=== PATIENT | female | born 1960 | race Caucasian/White ===

== ENCOUNTER 2018-07-19 15:21 | Outpatient (RCR) | payer SELFPAY ==
[~2018-07-19] VITALS: Ht 165.1 cm; Wt 83.9 kg
[~2018-07-19 15:21] MED LIST: EST1T TD; IBU800 PO; IBUP-1618 PO; PER PO
--- NOTE | 2018-07-20 17:18 | Medical Nutrition Therapy ---
Nutrition Anthropometrics Height (Inches): 65 Weight (Pounds): 185 (stted) Justin Nutrition Score: Justin Nutrition Risk Score: Dietary Referral Nutrition Risk Factors: Nutrition Risk Comment: Nutrition/Food History Breakfast: llatte Lunch: PBG, salad or nothing Dinner: meat, potatoe Snacks: crackers and PB Nutritional Education Nutrition Education Topic: Diabetic Nutrition Learning Barriers: Emotional (pt states has high stress level) Learning Readiness: Interested (in information on diet), Not Ready (to set goals or attend classes) Teaching Methods: Discussion, Handout Response to Teaching: Verbalize understanding Teaching Recipient: Patient Nutrition Counseling: Reviewed pt self assessment and diabetes distress. Pt is new to diabetes and states her greates concern is eating right. Reviewed what is diabetes. Reviewed glycemic response to CHO. Pt is a executive chairman of the board and often skips lunch or eats when she has available time. Provided meal plan of quick, easy things she could eat. Since pt skips breakfast, recommend pt eat a morning snack of 15 gm CHO with 30gm CHO at lunchtime and to eat 30-45gm CHO for supper meal. Pt states at this time her stress level is very high "until my dad dies". Pt not ready at this time to attend classes on diabetes or set behavioural goal or support plan. Encouraged pt to meet with CDE for glucometer education. Pt would not committ at this time but will consider. Will provide f/u phone calls quarterly and encourage classes at later date when pt is ready. Nutrition Monitoring & Eval RD Patient Assessment Time: [address] Assessment Type: RD Education Nutritional Comment: Provided 60 minutes diabetes education focusing on what is diabetes and nutrition. Copies To Copies to: MU LOPEZ BETH Jul 20, 2018 17:18
== END 2018-08-23 ==
LOC: DIET 15:21
PROVIDERS: ATTEND Nurse Practitioner Family
DX: Z71.3 Dietary counseling and surveillance (principal); E11.65 Type 2 diabetes mellitus with hyperglycemia; E78.2 Mixed hyperlipidemia
CPT/HCPCS: G0108 ×2